=== PATIENT | female | born 1965 | race Caucasian/White ===

== ENCOUNTER 2016-09-13 21:19 | Inpatient (IN) | payer BC ==
[~2016-09-13] VITALS: Ht 160 cm; Wt 65.9 kg
[2016-09-14] VITALS (14 sets, daily range): BP systolic 96–145; BP diastolic 63–89; Ht 160 cm; Wt 65.9 kg
--- NOTE | 2016-09-14 | NUR ---
PLACED ON BEDPAN VOIDS WELL.
[2016-09-14 00:16] LABS: INR 0.98 (0.85-1.17); PROTIME 12.8 SECONDS (11.6-15.0)
[2016-09-14 00:17] LABS: BASOPHILS 0.3 % (0-2); EOSINOPHILS 1.6 % (0-7); HEMATOCRIT 38.7 % (36.0-48.0); HEMOGLOBIN 13.4 g/dL (12-16); IMMATURE GRANULOCYTES 0.4 % (0-5); LYMPHOCYTES 28.9 % (15-50); MCH 30.9 pg (26.0-34.0); MCHC 34.6 g/dL (31.0-37.0); MCV 89.4 fL (80.0-100.0); MEAN PLATELET VOLUME 10.2 fL (7.4-10.4); NEUTROPHILS 61.8 % (40-80); PLATELET COUNT 226 10x3/uL (130-400); RBC 4.33 10x6/uL (4.00-5.40); RDW 12.3 % (11.5-14.5)
[2016-09-14 00:18] LABS: APPEARANCE CLEAR (CLEAR); BILIRUBIN NEGATIVE (NEGATIVE); COLOR YELLOW (YELLOW); GLUCOSE NEGATIVE (NEGATIVE); KETONE NEGATIVE (NEGATIVE); LEUKOCYTE ESTERASE NEGATIVE (NEGATIVE); NITRITE NEGATIVE (NEGATIVE); PROTEIN NEGATIVE (NEGATIVE); UROBILINOGEN NORMAL (NORMAL)
[2016-09-14 00:19] LABS: BACTERIA FEW /hpf (NONE SEEN); EPITHELIAL CELLS 0-5 /hpf (0-5); RED CELLS - URINE 0-5 /hpf (0-5); WHITE CELLS - URINE 0-5 /hpf (0-5)
[2016-09-14 00:20] LABS: ALBUMIN 3.5 g/dL (3.4-5.0); ALKALINE PHOSPHATASE 81 U/L (46-116); ALT (SGPT) 26 U/L (10-68); BILIRUBIN - TOTAL 0.18 mg/dL (0.2-1.3); CALC OSMOLALITY 289 mosm/kg (275-300); CALCIUM 8.4 mg/dL (8.5-10.1); CARBON DIOXIDE 29.7 mmol/L (21.0-32.0); CHLORIDE - SERUM 109 mmol/L (98-107); CREATININE - SERUM 0.8 mg/dL (0.6-1.3); GLUCOSE 115 mg/dL (74-106); POTASSIUM - SERUM 4.2 mmol/L (3.5-5.1); PROTEIN - SERUM 6.8 g/dL (6.4-8.2); SODIUM 145 mmol/L (136-145); UREA NITROGEN 12 mg/dL (7-18); eGFR NON AFRICAN AMERICAN 79 mL/min (90-120)
--- NOTE | 2016-09-14 00:24 | NUR ---
REC'D TO ROOM 2225 FROM ER DEPT PER STRETCHER A 51 Y/O W/FE PER SERVICES DR. HEWITT WITH FRACTURED LEFT ANKLE FROM A FALL. ALLERGY=PROPANOLOL AND BETADINE. IV SALINE LOCKED TO LEFT AC SITE. STARTED IV FLUIDS OF NS AT 30CC'S/HR WITH TOUCH UP PAINTER HAND OF DILAUDID WITH SETTINGS AT 0.2MG Q10MIN WITH 4 MG Q4H L/O. INSTRUCTED PATIENT ON USEAGE SPOUSE AT BEDSIDE.ASSESSMENT PER ADMIT PACKET. LEFT FOOT AND ANKLE WITH SPLINT AND SERVANDO WRAP ON ELEVATED ON 2 PILLOWS. PT IS NPO.
--- NOTE | 2016-09-14 02:49 | NUR ---
EYES CLOSED RESPIRATIONS WITH EASE AND UNLABORED. DENIES NEEDS.
--- NOTE | 2016-09-14 04:22 | NUR ---
AROUSES TO VERBAL STIMULI. REMAINS NPO. ICE BAG PLACED TO LEFT ANKLE. RESTING QUIETLY. BODY IN GOOD ALIGNMENT.
--- NOTE | 2016-09-14 06:35 | NUR ---
REMAINS NPO FOR SURGERY. RESTING QUIETLY DENIES NEEDS.
--- NOTE | 2016-09-14 07:15 | NUR ---
REPORT RECEIVED FROM BASE REMOVER NURSE. CALL LIGHT IN REACH.
--- NOTE | 2016-09-14 08:05 | NUR ---
ASSESSMENT COMPLETED. PLACED ON AND OFF BEDPAN. WILL HAVE MYCOLOGIST ASSIST WITH HIBICLENS BATH. BED ALARM TURNED ON. CALL LIGHT IN REACH. WILL CONTINUE WITH PLAN OF CARE.
--- NOTE | 2016-09-14 09:33 | NUR ---
CRYING IN PAIN. TORADOL 30 MG SIVP. ALSO DILAUDID BOLUS OF 0.4 MG. ALSO RECEIVED ORDERS TO CHANGE WEB MASTER TO NO LOCKOUT AND INCREASED SETTINGS TO 0.4 MG. FAMILY AT BEDSIDE. CALL LIGHT IN REACH.
--- NOTE | 2016-09-14 09:36 | NUR ---
Patient Name: ELIDA TRIVEDI Admission Status: ER Accout number: [id number] Admission Date: 09-13-2016 : 1965 Admission Diagnosis: Attending: DANICA Current LOS: 1 Anticipated DC Date: 09-15-2016 Planned Disposition: Home Primary Insurance: [email or web address] OUT OF STATE Discharge Planning Comments: CM MET WITH PATIENT REGARDING D/C NEEDS AND PLANS. PATIENT STATED SHE LIVES WITH HER SPOUSE (ANDREA) AND HE WILL DRIVE HER HOME AT DISCHARGE. PATIENT STATED THERE ARE 4 STEPS W/O RAILS TO ENTER HOME AND 3 STAIRCASES W/RAILS IN HER HOME BUT WILL NOT HAVE TO USE THEM. PATIENT IS INDEPENDENT WITH HER CARE AND HAS NO DME AT HOME. PATIENTS PCP IS DR. BRENNAN IN [facility] AND WILL USE [facility] [address] FOR HER PHARMACY. PATIENT DOES NOT WANT HOME HEALTH. CM WILL CONTINUE TO FOLLOW PATIENT WITH D/C NEEDS AND PLANS. PCP DR. BRENNAN [phone] [facility]- [phone] ANDREA (SPOUSE) [phone] Surgical Instrument Repair Specialist: Aaynna Madrid Is the patient Alert and Oriented? Yes 0 * How many steps to enter\exit or inside your home? 4 w/o rail 0 * PCP DR. BRENNAN IN [facility] 0 * Pharmacy [facility] ON [address] 0 * Preadmission Environment Home with Family 0 * ADLs Independent 0 * Equipment None 0 * List name and contact numbers for known caregivers / representatives who currently or will assist patient after discharge: ANDREA (SPOUSE) [phone] 0 * Community resources currently utilized None 0 * Additional services required to return to the preadmission environment? Yes 0 * Can the patient safely return to the preadmission environment? Yes 0 * Has this patient been hospitalized within the prior 30 days at any hospital? No 0 Grand Total: 0
--- NOTE | 2016-09-14 11:00 | NUR ---
PATIENT IN BED WITH EYES CLOSED RESTING QUIETLY. VS TAKEN BY RENAL CASE MANAGER. SATS IN 80'S. WOKE PATIENT UP. NO PROBLEMS OR DISTRESS, PATIENT STATED JUST RELAXED AND SLEEPING. O2 PLACED 2 LITERS. SATS UP TO 96 % WHILE SLEEPING. FAMILY AT BEDSIDE. CALL LIGHT WITHIN REACH.
--- NOTE | 2016-09-14 11:55 | NUR ---
PREOPS MEDS ADMINISTERED. NO DISTRESS NOTED. AND SISTER AT BEDSIDE. CALL LIGHT IN REACH.
--- NOTE | 2016-09-14 12:07 | NUR ---
TO OR VIA BED.
--- NOTE | 2016-09-14 12:46 | NUR ---
OFF FLOOR IN OR AT THIS TIME.
--- NOTE | 2016-09-14 14:55 | NUR ---
RECEIVED BACK TO ROOM 2225 FROM RECOVERY ROOM VIA BED. O2 @ 4L PER NC WHEN PATIENT ARRIVED TO FLOOR. DECREASED O2 TO 2L PER NC. O2 SAT IS NOW 95%. SCD APPLIED TO RLE ONLY. LLE ELEVATED ON 2 PILLOWS. ICE PACK APPLIED ALSO. DAIRY AND FOOD LABORATORY ASSISTANT BUTTON IN PATIENT'S REACH BUT IS DENYING PAIN AT THIS TIME. AT BEDSIDE. BED ALARM ON. CALL LIGHT IN REACH. FRESH CUP OF ICE WATER GIVEN TO PATIENT. WILL CONTINUE WITH PLAN OF CARE.
--- NOTE | 2016-09-14 16:12 | NUR ---
O2 SAT IS 97% ON 2L PER NC. RESTING WITH EYES CLOSED. RESP EVEN AND UNLABORED. VSS. CALL LIGHT IN REACH. FAMILY AT BEDSIDE.
--- NOTE | 2016-09-14 18:14 | NUR ---
HAS VOIDED 400 CC URINE POST SURGERY. NO CHANGES IN INITIAL ASSESSMENT. SCD TO RLE. BED ALARM ON. AT BEDSIDE. CALL LIGHT IN REACH. WILL CONTINUE WITH PLAN OF CARE.
--- NOTE | 2016-09-14 20:00 | NUR ---
ASSESSMENT PER FLOWSHEET. LEFT LOWER LEG/FOOT IN CAST ELEVATED ON 2 PILLOWS. ICE BAGS X2 APPLIED TO LEG/FOOT AREA. IV PATENT LEFT AC OF NS AT 30CC'S/HR SITE CLEAR. INCIDENT MANAGER OF DILAUDID IN USE WITH SETTINGS AT 0.4MG Q10MIN WITH NO L/O. O2 ON 1.5 L/M PER NC. SCD ON RT LEG. SR UP X2 CALL LIGHT WITHIN REACH.
--- NOTE | 2016-09-14 21:33 | NUR ---
PT REQUESTING A BOLUS FROM DEVELOPING MACHINE TENDER. 0.4MG BOLUS GIVEN PER DEVELOPING MACHINE TENDER. FOR A PAIN RATE OF 4-5. PLACED ON BEDPAN VOIDS WELL.
--- NOTE | 2016-09-14 22:52 | NUR ---
C/O PAIN INCISIONAL AREA RATES PAIN LEVEL #4 TORADOL 30MG GIVEN FOR PAIN CONTROL.
[2016-09-15] VITALS (7 sets, daily range): BP systolic 113–144; BP diastolic 66–83
--- NOTE | 2016-09-15 02:15 | NUR ---
EYES CLOSED RESPIRATIONS WITH EASE AND UNLABORED.
--- NOTE | 2016-09-15 03:47 | NUR ---
VOIDS ON BEDPAN RESTING QUIETLY BODY IN GOOD ALIGNMENT.
--- NOTE | 2016-09-15 07:30 | NUR ---
RECIEVED PT DURING WALKING ROUNDS. PT RESTING IN BED WITH NO COMPLAINTS OF PAIN OR DISCOMFORT AT THIS TIME. ASSESSMENT DONE PER FLOWSHEET. BED IN LOW POSITION AND CALL LIGHT WITHIN REACH. WILL CONTINUE TO MONITOR.
--- NOTE | 2016-09-15 09:40 | NUR ---
INSTRUCTED PT ON INSENTIVE SPIROMETER AT THIS TIME, PT PREFORMED PROPERLY. TOLERATING WELL. BED IN LOW POSITION AND CALL LIGHT WITHIN REACH. WILL CONTINUE TO MONITOR.
--- NOTE | 2016-09-15 19:00 | NUR ---
BEDSIDE REPORT RECEIVED AND CARE OF PT ASSUMED. PT LYING IN SEMI SUAZO'S POSITION VISITING WITH FAMILY MEMBERS. IV IN LEFT AC PATENT WITH NS INFUSING AT 30 ML / HR, AND STENCIL PRINTER / DILAUDID IN USE FOR PAIN MANAGEMENT. DRESSING ON LEFT FOOT CLEAN AND DRY, WITH FOOT ELEVATED ON PILLOWS AND ICE PACK APPLIED. SCD IN USE ON RLE. WILL MONITOR CLOSELY FOR NEEDS.
--- NOTE | 2016-09-15 21:00 | NUR ---
GAVE TORADOL IV PER REQUEST FOR BREAKTHROUGH PAIN AT LEVEL 5/10. WILL MONITOR FOR EFFECTIVENESS.
--- NOTE | 2016-09-15 22:00 | NUR ---
PT RESTING QUIELTY AND STATES PAIN DECREASED WITH TORDOL. WILL CONTINUE TO MONITOR FOR NEEDS.
--- NOTE | 2016-09-16 01:46 | NUR ---
PT C/O BREAKTHROUGH PAIN AND REQUESTING TORADOL. GAVE PER PRN ORDER. WILL MONITOR FOR EFFECTIVENESS.
[2016-09-16 04:00] VITALS: BP 115/73
--- NOTE | 2016-09-16 07:30 | NUR ---
RECIEVED PT DURING WALKING ROUNDS, PT RESTING IN BED WITH NO COMPLAINTS OF PAIN OR DISCOMFORT AT THIS TIME. ASSESSMENT DONE PER FLOWSHEET. BED IN LOW POSITION AND CALL LIGHT WITHIN REACH. WILL CONTINUE TO MONITOR.
[2016-09-16] MEDS ORDERED: ELIQUIS2.5 MG PO (08:02)
[2016-09-16] MEDS ORDERED: DILAUDID4 MG PO (08:08)
[2016-09-16 08:25] VITALS: BP 109/70
--- NOTE | 2016-09-16 08:42 | NUR ---
CM REASSESSMENT NOTE: PATIENT IS DISCHARGING HOME TODAY/SPOUSE DRIVING. CRUTCHES TO BE DELIVERED TO PATIENTS ROOM BEFORE DISCHARGE FROM [facility].
--- NOTE | 2016-09-16 08:50 | NUR ---
CM REASSESSMENT NOTE: PATIENT WAS OFFERED HOME HEALTH AND PATIENT REFUSED.
--- NOTE | 2016-09-16 09:40 | NUR ---
DC'D CELLAR SUPERVISOR AT THIS TIME PER ORDER. PT RESTING IN BED WITH LEG ELEVATED. BED IN LOW POSITION AND CALL LIGHT WITHIN REACH. WILL CONTINUE TO MONITOR.
[2016-09-16 12:33] VITALS: BP 205/96
--- NOTE | 2016-09-16 15:00 | NUR ---
IV REMOVED WITH CATH INTACT. PT DISCHARGED VIA WHEELCHAIR TO HOME WITH A FAMILY MEMBER.
[2016-09-16 15:22] LABS: BETA STREP (GROUP B) ANTIGEN Negative (Negative); N. MENINGITIDIS AG Negative (Negative); SPECIMEN SOURCE Urine (())
== END 2016-09-16 15:01 | disposition home or self-care (01) | DRG 494 ==
LOC: D.ER 21:19 → D.MS 23:24 → OBSVTIME 23:24 → D.MS 09-15 08:38
PROVIDERS: Emergency Medicine; ADMIT Orthopaedic Surgery
PROC: 0QSH0ZZ Reposition Left Tibia, Open Approach (ICD-10-PCS; 2016-09-14)
PROC: 0QSK0ZZ Reposition Left Fibula, Open Approach (ICD-10-PCS; principal; 2016-09-14 12:00)
DX: S82.842A Displaced bimalleolar fracture of left lower leg, initial encounter for closed fracture (principal); W01.0XXA Fall on same level from slipping, tripping and stumbling without subsequent striking against object, initial encounter; Z85.3 Personal history of malignant neoplasm of breast